=== PATIENT | female | born 1980 | race Caucasian/White ===

== ENCOUNTER 2016-08-26 19:58 | Emergency (ER) | payer OTHER ==
[2016-08-26 20:08] VITALS: BP 121/81
--- NOTE | 2016-08-26 20:12 | EDM.PDOC ---
ED HPI GENERAL MEDICAL PROBLEM - General Chief Complaint: Abdominal Pain Stated Complaint: VOMITING ABDOMINAL PAIN Time Seen by Provider: 08/26/16 20:04 - History of Present Illness INITIAL COMMENTS - FREE TEXT/NARRATIVE: 5-year-old female presents emergency room with abdominal pain. This pain has been going on for couple of days progressively getting worse. Pain seems to be in the mid epigastric area it is associated with nausea and vomiting she's felt bloated at times. She had a gallbladder removed about 4 years ago. She does get intermittent bouts of heartburn. She's not aware of any specific foods make this worse. She denies any constipation or diarrhea patient isn't aware of any other specific triggers eating tends to make it a little worse but she cannot recall what type of foods make it worse. Middle Abdomen Pain Score (Numeric/FACES): 4 - Related Data Allergies Allergy/AdvReac Type Severity Reaction Status Date / Time No Known Allergies Allergy Verified 08/26/16 20:08 Home Meds: Home Meds Lansoprazole [Prevacid] 30 mg PO Q24H #30 tab.rap.dr 08/26/16 [Rx] Ondansetron [Zofran ODT] 4 mg PO Q6H PRN #10 tab.dis 08/26/16 [Rx] Sucralfate [Carafate] 1 gm PO QIDACANDBED #30 tablet 08/26/16 [Rx] Past Medical History Other Gastrointestinal History: nausea. 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 (See Below) Other OB/BYN History: 5 miscarriages Other Dermatologic History: history of skin cancer - Past Surgical History HEENT Surgical History: Reports: Oral Surgery, Tonsillectomy Social & Family History - Tobacco Use Smoking Status *Q: Former Smoker Years of Tobacco use: 10 Used Tobacco, but Quit: Yes Month Tobacco Last Used: quit 5 years ago Second Hand Smoke Exposure: No - Recreational Drug Use Recreational Drug Use: No ED ROS GENERAL - Review of Systems Review Of Systems: See Below Constitutional: Reports: No Symptoms HEENT: Reports: No Symptoms Respiratory: Reports: No Symptoms Cardiovascular: Reports: Dyspnea on Exertion Endocrine: Reports: No Symptoms GI/Abdominal: Reports: Abdominal Pain, Anorexia, Decreased Appetite, Nausea, Vomiting. Denies: Black Stool, Bloody Stool, Difficulty Swallowing : Reports: No Symptoms Musculoskeletal: Reports: No Symptoms, Neck Pain Skin: Reports: No Symptoms Neurological: Reports: No Symptoms, Confusion, Dizziness, Headache, Numbness Psychiatric: Reports: No Symptoms, Agitation, Anxiety, Confusion ED EXAM, GI/ABD - Physical Exam Exam: See Below Exam Limited By: No Limitations General Appearance: Alert, No Apparent Distress Eyes: Bilateral: Normal Appearance Ears: Normal External Exam, Normal Canal, Hearing Grossly Normal, Normal TMs Nose: Normal Inspection, Normal Mucosa, No Blood Respiratory/Chest: No Respiratory Distress, Lungs Clear, Normal Breath Sounds Cardiovascular: Regular Rate, Rhythm, No Edema, No Murmur GI/Abdominal: Normal Bowel Sounds, Soft, Non-Tender Back Exam: Normal Inspection. No: CVA Tenderness (L), CVA Tenderness (R) Extremities: Normal Inspection, No Pedal Edema Course - Vital Signs Last Recorded V/S: Last Vital Signs Temp 36.7 C 08/26/16 20:04 Pulse 97 08/26/16 20:04 Resp 18 08/26/16 20:04 BP 121/81 08/26/16 20:04 Pulse Ox 99 08/26/16 20:04 - Orders/Labs/Meds Orders: Active Orders 24 hr Category Date Time Status Abdomen 2V AP Flat Upright [CR] Stat Exams 08/26/16 20:26 Taken Pantoprazole [ProTONIX] Med 08/27/16 22:34 Once 40 mg PO ONETIME ONE Medication Orders Pantoprazole Sodium (Protonix) 40 mg PO ONETIME ONE Stop: 08/27/16 22:35 Labs: Laboratory Tests 08/26/16 08/26/16 08/26/16 Range/Units 20:27 20:27 20:27 WBC 7.82 (3.98-10.04) K/mm3 RBC 4.46 (3.98-5.22) M/mm3 Hgb 14.2 (11.2-15.7) gm/L Hct 42.2 (34.1-44.9) % MCV 94.6 (79.4-94.8) fl MCH 31.8 (25.6-32.2) pg MCHC 33.6 (32.2-35.5) g/dl RDW Std Deviation 41.6 (36.4-46.3) fL Plt Count 182 (182-369) K/mm3 MPV 9.2 L (9.4-12.3) fl Neutrophils % (Manual) 87 H (40-60) % Band Neutrophils % 0 (0-10) % Lymphocytes % (Manual) 8 L (20-40) % Atypical Lymphs % 2 % Monocytes % (Manual) 3 (2-10) % Eosinophils % (Manual) 0 L (0.7-5.8) % Basophils % (Manual) 0 L (0.1-1.2) Platelet Estimate Adequate Plt Morphology Comment Normal RBC Morph Comment Normal Sodium 141 (136-145) mEq/L Potassium 3.4 L (3.5-5.1) mEq/L Chloride 106 (98-107) mEq/L Carbon Dioxide 25 (21-32) mEq/L Anion Gap 13.4 (5-15) BUN 7 (7-18) mg/dL Creatinine 1.1 H (0.55-1.02) mg/dL Est Cr Clr Drug Dosing 69.00 mL/min Estimated GFR (MDRD) 57 (>60) mL/min BUN/Creatinine Ratio 6.4 L (14-18) Glucose 100 (74-106) mg/dL Calcium 8.3 L (8.5-10.1) mg/dL Total Bilirubin 2.2 H (0.2-1.0) mg/dL AST 12 L (15-37) U/L ALT 16 (14-59) U/L Alkaline Phosphatase 55 (46-116) U/L Total Protein 7.4 (6.4-8.2) g/dl Albumin 3.9 (3.4-5.0) g/dl Globulin 3.5 gm/dL Albumin/Globulin Ratio 1.1 (1-2) Lipase 171 (73-393) U/L HCG, Qual Negative (NEGATIVE) Urine Color (Yellow) Urine Appearance (Clear) Urine pH (5.0-8.0) Ur Specific [place] (1.005-1.030) Urine Protein (Negative) Urine Glucose (UA) (Negative) Urine Ketones (Negative) Urine Occult Blood (Negative) Urine Nitrite (Negative) Urine Bilirubin (Negative) Urine Urobilinogen (0.2-1.0) Ur Leukocyte Esterase (Negative) Urine RBC (0-5) /hpf Urine WBC (0-5) /hpf Ur Epithelial Cells (0-5) /hpf Urine Bacteria (FEW) /hpf Urine Mucus (FEW) /hpf 08/26/16 Range/Units 21:50 WBC (3.98-10.04) K/mm3 RBC (3.98-5.22) M/mm3 Hgb (11.2-15.7) gm/L Hct (34.1-44.9) % MCV (79.4-94.8) fl MCH (25.6-32.2) pg MCHC (32.2-35.5) g/dl RDW Std Deviation (36.4-46.3) fL Plt Count (182-369) K/mm3 MPV (9.4-12.3) fl Neutrophils % (Manual) (40-60) % Band Neutrophils % (0-10) % Lymphocytes % (Manual) (20-40) % Atypical Lymphs % % Monocytes % (Manual) (2-10) % Eosinophils % (Manual) (0.7-5.8) % Basophils % (Manual) (0.1-1.2) Platelet Estimate Plt Morphology Comment RBC Morph Comment Sodium (136-145) mEq/L Potassium (3.5-5.1) mEq/L Chloride (98-107) mEq/L Carbon Dioxide (21-32) mEq/L Anion Gap (5-15) BUN (7-18) mg/dL Creatinine (0.55-1.02) mg/dL Est Cr Clr Drug Dosing mL/min Estimated GFR (MDRD) (>60) mL/min BUN/Creatinine Ratio (14-18) Glucose (74-106) mg/dL Calcium (8.5-10.1) mg/dL Total Bilirubin (0.2-1.0) mg/dL AST (15-37) U/L ALT (14-59) U/L Alkaline Phosphatase (46-116) U/L Total Protein (6.4-8.2) g/dl Albumin (3.4-5.0) g/dl Globulin gm/dL Albumin/Globulin Ratio (1-2) Lipase (73-393) U/L HCG, Qual (NEGATIVE) Urine Color Yellow (Yellow) Urine Appearance Clear (Clear) Urine pH 6.0 (5.0-8.0) Ur Specific [place] 1.025 (1.005-1.030) Urine Protein Negative (Negative) Urine Glucose (UA) Negative (Negative) Urine Ketones Negative (Negative) Urine Occult Blood Trace-lysed H (Negative) Urine Nitrite Negative (Negative) Urine Bilirubin Negative (Negative) Urine Urobilinogen 0.2 (0.2-1.0) Ur Leukocyte Esterase Negative (Negative) Urine RBC 0-5 (0-5) /hpf Urine WBC 0-5 (0-5) /hpf Ur Epithelial Cells 0-5 (0-5) /hpf Urine Bacteria Rare (FEW) /hpf Urine Mucus Moderate H (FEW) /hpf Meds: Medications Generic Name Dose Route Start Last Admin Trade Name Freq PRN Reason Stop Dose Admin Pantoprazole Sodium 40 mg 08/27/16 22:34 Protonix PO 08/27/16 22:35 ONETIME ONE Discontinued Medications Generic Name Dose Route Start Last Admin Trade Name Freq PRN Reason Stop Dose Admin Al Hydroxide/Mg Hydroxide 30 0 ml 08/26/16 20:23 08/26/16 20:38 ml/ Lidocaine HCl 15 ml PO 08/26/16 20:24 45 ml ONETIME ONE Administration Lactated Ringer's 1,000 mls @ 999 mls/hr 08/26/16 20:23 08/26/16 20:33 Ringers, Lactated IV 08/26/16 21:23 999 mls/hr .BOLUS ONE Administration Ondansetron HCl 4 mg 08/26/16 20:23 08/26/16 20:33 Zofran IVPUSH 08/26/16 20:24 4 mg ONETIME ONE Administration Sucralfate 1 gm 08/26/16 22:24 08/26/16 22:28 Carafate PO 08/26/16 22:25 1 gm ONETIME ONE Administration - Re-Assessments/Exams Free Text/Narrative Re-Assessment/Exam: 08/26/16 22:26 Patient had significant improvement with the GI cocktail patient will be given Carafate and a dose of Protonix prior to leaving. KUB and upright are unrevealing laboratory evaluation is unrevealing. Departure - Departure Time of Disposition: 22:26 Disposition: Home, Self-Care 01 Clinical Impression: Dyspepsia - Discharge Information Prescriptions: Lansoprazole [Prevacid] 30 mg PO Q24H #30 tab.rap Ondansetron [Zofran ODT] 4 mg PO Q6H PRN #10 tab.dis PRN Reason: Nausea/Vomiting Sucralfate [Carafate] 1 gm PO QIDACANDBED #30 tablet Referrals: Tk Rubin MD [Primary Care Provider] - Forms: ED Department Discharge Additional Instructions: Return to the emergency room with any questions or problems or worsening symptoms. Follow up with her physician early this next week for recheck. He been started on several medications first one is Carafate take this 4 times a day before meals and at bedtime take your other medications at least 1 hour before 2 hours after using this medication. You only take this medication for a week. The second medication is Prevacid take this 30-60 minutes before your evening meal. The third medicine is Zofran this is for nausea use this on an as- needed basis one every 6 hours. - My Orders Last 24 Hours: My Active Orders 08/26/16 20:26 Abdomen 2V AP Flat Upright [CR] Stat 08/27/16 22:34 Pantoprazole [ProTONIX] 40 mg PO ONETIME ONE - Assessment/Plan Last 24 Hours: My Active Orders 08/26/16 20:26 Abdomen 2V AP Flat Upright [CR] Stat 08/27/16 22:34 Pantoprazole [ProTONIX] 40 mg PO ONETIME ONE
[2016-08-26] MEDS ORDERED: Lactated Ringers 1,000 ML IV ONE (20:23)
[2016-08-26] MEDS ORDERED: Alum Hydrox/Mag Hydrox/Simeth 30 ML, Lidocaine 2% 15 ML PO ONE ×2 (20:23)
[2016-08-26] MEDS ORDERED: Ondansetron 4 MG/2 ML SDV IVPUSH ONE (20:23)
[2016-08-26] MEDS ORDERED: Sucralfate Suspension 1 GM/10 ML Cup PO ONE (22:24)
[2016-08-26] MEDS ORDERED: Pantoprazole 40 MG Tab.CR PO ONE (22:34)
--- NOTE | 2016-08-27 07:01 | CR ---
Abdomen: Supine and upright views of the abdomen were obtained. Comparison: Previous abdominal x-ray of 04/22/09. Several small calcifications are seen within the pelvis most likely representing phleboliths. Surgical clips are seen from prior cholecystectomy. Bowel gas pattern appears normal. Bony structures are within normal limits. No free air is seen. Impression: 1. Incidental findings as described above. Diagnostic code #2
[2016-08-27] MEDS ORDERED: Pantoprazole 40 MG Tab.CR PO ONE (22:34)
== END 2016-08-26 22:50 | disposition home or self-care (01) ==
LOC: JD.ED 19:58
DX: R10.13 Epigastric pain (principal); Z98.890 Other specified postprocedural states; Z85.828 Personal history of other malignant neoplasm of skin; Z87.891 Personal history of nicotine dependence
CPT/HCPCS: 36415; 74020; 80053; 81001; 83690; 84703; 85025; 96361; 96374; 99284; A9270; J2405; J7120; 99283

== ENCOUNTER 2019-12-22 16:08 | Emergency (ER) | payer OTHER ==
[2019-12-22 16:19] VITALS: BP 106/65; PULSE 74
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
[2019-12-22] MEDS ORDERED: Oxymetazoline 0.05% Nasal Spray 30 ML Bottle NAS ONE (16:51)
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
== END 2019-12-22 17:19 | disposition home or self-care (01) ==
LOC: JD.ED 16:08
DX: S00.33XA Contusion of nose, initial encounter (principal); F41.9 Anxiety disorder, unspecified; Z90.710 Acquired absence of both cervix and uterus; Z90.49 Acquired absence of other specified parts of digestive tract; Z79.899 Other long term (current) drug therapy; W22.8XXA Striking against or struck by other objects, initial encounter; Y92.009 Unspecified place in unspecified non-institutional (private) residence as the place of occurrence of the external cause
CPT/HCPCS: 70160; 99283; A9270

== ENCOUNTER 2020-03-29 19:08 | Emergency (ER) | payer OTHER ==
--- NOTE | 2020-03-29 20:12 | EDM.PDOC ---
ED HPI GENERAL MEDICAL PROBLEM - General Chief Complaint: Skin Complaint Stated Complaint: PAIN REDNESS AND SWELLING IN LEGS Time Seen by Provider: 03/29/20 19:09 Source of Information: Reports: Patient History Limitations: Reports: No Limitations - History of Present Illness INITIAL COMMENTS - FREE TEXT/NARRATIVE: Is a 39-year-old female. She says that yesterday she felt kind of tired and yucky and she was having some chills but no documented fever. She noted this morning that she started having pain on the left lateral foot area with redness and swelling that has progressed. She also developed redness on the right lateral malleolus and it seems to go streaking up about mcfp up the lateral leg. Then she has 2 spots on the left medial calf noted. This is gotten worse and more painful and she comes to the clinic for evaluation. She says that her ankles also hurt if she tries to move them or walk. She denies any insect bites. She denies any abrasions. She did shave her legs this afternoon in anticipation of coming to the ER this evening. Nausea vomiting diarrhea denies any cough or congestion. Bilateral Lower Leg Pain Score (Numeric/FACES): 8 - Related Data Allergies Allergy/AdvReac Type Severity Reaction Status Date / Time No Known Allergies Allergy Verified 03/29/20 19:20 Home Meds: Home Meds LORazepam [Ativan] 1 mg PO ASDIRECTED PRN 09/14/18 [History] Multivitamin [Daily Multiple Vitamin] 1 tab PO DAILY 09/14/18 [History] Sertraline HCl [Zoloft] 20 mg PO DAILY 12/22/19 [History] cephALEXin [Keflex] 500 mg PO TID #21 cap 03/29/20 [Rx] Past Medical History HEENT History: Reports: Other (See Below) Other HEENT History: wears glasses Cardiovascular History: Reports: None Respiratory History: Reports: None Gastrointestinal History: Reports: Cholelithiasis, PUD Other Gastrointestinal History: nausea. 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, ovarian cyst, irregular menstrual bleeding, dysmenorrhea, dyspareunia, pelvic pain, left breast mass, Musculoskeletal History: Reports: Other (See Below) Other Musculoskeletal History: broken thumb Neurological History: Reports: Migraines Psychiatric History: Reports: Anxiety Endocrine/Metabolic History: Reports: None Hematologic History: Reports: Anemia Immunologic History: Reports: None Oncologic (Cancer) History: Reports: None Dermatologic History: Reports: Other (See Below) Other Dermatologic History: history of skin cancer, six spots removed - Past Surgical History Head Surgeries/Procedures: Reports: None HEENT Surgical History: Reports: Oral Surgery, Tonsillectomy Other HEENT Surgeries/Procedures: wisdom teeth extraction Cardiovascular Surgical History: Reports: None Respiratory Surgical History: Reports: None GI Surgical History: Reports: Cholecystectomy Female Surgical History: Reports: Hysterectomy Endocrine Surgical History: Reports: None Neurological Surgical History: Reports: None Oncologic Surgical History: Reports: None Social & Family History - Tobacco Use Tobacco Use Status *Q: Never Tobacco User Second Hand Smoke Exposure: No - Caffeine Use Caffeine Use: Reports: Coffee - Recreational Drug Use Recreational Drug Use: No ED ROS GENERAL - Review of Systems Review Of Systems: See Below Constitutional: Reports: Chills, Malaise. Denies: Fever HEENT: Reports: No Symptoms Respiratory: Reports: No Symptoms Cardiovascular: Reports: No Symptoms Endocrine: Reports: No Symptoms GI/Abdominal: Reports: No Symptoms : Reports: No Symptoms Musculoskeletal: Reports: No Symptoms Skin: Reports: Erythema Neurological: Reports: No Symptoms Psychiatric: Reports: No Symptoms Hematologic/Lymphatic: Reports: No Symptoms ED EXAM, SKIN/RASH Exam: See Below Exam Limited By: No Limitations General Appearance: Alert, WD/WN, No Apparent Distress Eye Exam: Bilateral Eye: Normal Inspection Ears: Normal External Exam Nose: Normal Inspection Throat/Mouth: Normal Lips, Normal Voice, No Airway Compromise Head: Normocephalic Neck: Supple Respiratory/Chest: No Respiratory Distress Back Exam: Full Range of Motion Extremities: Normal Range of Motion, Other (The left lower extremity she has a area about the size of my palm on her lateral foot and lateral malleolus area that swollen and red and very tender. On the right lower extremity she has the same redness on the lateral foot but then she has streaking of the redness about mcfp up the lateral side and then 2 spots about the size of a quarter on the medial calf. It is very tender on palpation. When she moves her ankles she complains of pain in these areas as well. It does not look like a gout picture where she has global swelling around the ankle joint.) Neurological: Alert, Oriented Psychiatric: Normal Affect, Normal Mood Skin: Warm, Dry, Erythema Location, Skin: Lower Extremity, Right, Lower Extremity, Left Associated features: Warmth, Tenderness, Swelling Course - Vital Signs Last Recorded V/S: Last Vital Signs Temp 98.5 F 03/29/20 19:17 Pulse 84 03/29/20 19:17 Resp 16 03/29/20 19:17 BP 112/70 03/29/20 19:17 Pulse Ox 98 03/29/20 19:17 - Orders/Labs/Meds Orders: Active Orders 24 hr Category Date Time Status cefTRIAXone 1 GM with Lidocaine 1% 2.1 ML IM Med 03/29/20 20:45 Ordered cefTRIAXone [Rocephin] 1 gm Lidocaine 1% [Xylocaine 1%] 2.1 ml IM Q24H Labs: Laboratory Tests 03/29/20 03/29/20 Range/Units 20:05 20:05 WBC 6.87 (3.98-10.04) K/mm3 RBC 4.08 (3.98-5.22) M/mm3 Hgb 13.0 D (11.2-15.7) gm/dl Hct 39.7 (34.1-44.9) % MCV 97.3 H (79.4-94.8) fl MCH 31.9 (25.6-32.2) pg MCHC 32.7 (32.2-35.5) g/dl RDW Std Deviation 41.3 (36.4-46.3) fL Plt Count 200 (182-369) K/mm3 MPV 8.4 L (9.4-12.3) fl Neut % (Auto) 58.1 (34.0-71.1) % Lymph % (Auto) 27.2 (19.3-51.7) % [place] % (Auto) 10.9 (4.7-12.5) % Eos % (Auto) 3.1 (0.7-5.8) Baso % (Auto) 0.4 (0.1-1.2) % Neut # (Auto) 3.99 (1.56-6.13) K/mm3 Lymph # (Auto) 1.87 (1.18-3.74) K/mm3 [place] # (Auto) 0.75 H (0.24-0.36) K/mm3 Eos # (Auto) 0.21 (0.04-0.36) K/mm3 Baso # (Auto) 0.03 (0.01-0.08) K/mm3 Uric Acid 3.9 (2.6-6.0) mg/dL C-Reactive Protein < 0.2 (<1.0) mg/dL - Re-Assessments/Exams Free Text/Narrative Re-Assessment/Exam: 03/29/20 20:43 Look to the patient regarding her cellulitis. We will going to give her a shot of Rocephin here in the ER to start things off. I did indicate to her that I believe that the reason it spreading is because she shaved her legs over the infection and she seated the skin above it. I will keep her on Keflex for at least 7 days. I indicated that if she does not notice a difference or improvement in 48 hours she needs to be rechecked by another physician. She states that she understands. I also cautioned her about keeping the legs elevated and using moist heat and taking some ibuprofen or Aleve for the soreness and try to stay off her legs until they start getting better. 03/29/20 20:44 CBC showed a normal white count her uric acid was normal and her C-reactive protein was normal Departure - Departure Time of Disposition: 20:44 Disposition: Home, Self-Care 01 Condition: Good Clinical Impression: Cellulitis of right lower extremity, Cellulitis of left lower extremity - Discharge Information *PRESCRIPTION DRUG MONITORING PROGRAM REVIEWED*: Not Applicable *COPY OF PRESCRIPTION DRUG MONITORING REPORT IN PATIENT PRITI: Not Applicable Prescriptions: cephALEXin [Keflex] 500 mg PO TID #21 cap Instructions: Cellulitis, Adult, [id number] Referrals: Tk Rubin MD [Primary Care Provider] - Forms: ED Department Discharge Additional Instructions: The shot that I gave you for the cellulitis will last for 24 hours but get your prescription filled tomorrow and start taking the antibiotics Tuesday evening, try to keep your legs elevated is much as possible use moist heat to the areas and take some ibuprofen or Aleve to help with the soreness. Try to stay off your feet as much as possible for the next couple of days. If you do not see a improvement or there is an obvious worsening of the symptoms or swelling or redness you need to follow-up in 48 hours for reevaluation with your family doctor or return to the ER. Sepsis Event Note (ED) - Evaluation Sepsis Screening Result: No Definite Risk - Focused Exam Vital Signs: Vital Signs Temp Pulse Resp BP Pulse Ox 03/29/20 19:17 98.5 F 84 16 112/70 98 - My Orders Last 24 Hours: My Active Orders 03/29/20 20:45 cefTRIAXone 1 GM with Lidocaine 1% 2.1 ML IM cefTRIAXone [Rocephin] 1 gm Lidocaine 1% [Xylocaine 1%] 2.1 ml IM Q24H - Assessment/Plan Last 24 Hours: My Active Orders 03/29/20 20:45 cefTRIAXone 1 GM with Lidocaine 1% 2.1 ML IM cefTRIAXone [Rocephin] 1 gm Lidocaine 1% [Xylocaine 1%] 2.1 ml IM Q24H
[2020-03-29] MEDS ORDERED: cefTRIAXone 1 GM, Lidocaine 1% 2.1 ML IM SCH ×2 (20:45)
[2020-03-29 20:53] VITALS: BP 95/61; PULSE 76
== END 2020-03-29 21:07 | disposition home or self-care (01) ==
LOC: JD.ED 19:08
DX: L03.115 Cellulitis of right lower limb (principal); L03.116 Cellulitis of left lower limb; R68.83 Chills (without fever); R53.81 Other malaise
CPT/HCPCS: 36415; 84550; 85025; 86140; 96372; 99283; J0696

== ENCOUNTER 2022-07-13 21:51 | Emergency (ER) | payer BC, OTHER ==
[2022-07-13] MEDS ORDERED: Sodium Chloride 0.9% 10 ML Syringe FLUSH PRN (22:39)
[2022-07-13] MEDS ORDERED: Ondansetron 4 MG/2 ML SDV IVPUSH ONE (22:39)
[2022-07-13] MEDS ORDERED: Sodium Chloride 0.9% 1,000 ML IV SCH (22:45)
[2022-07-13 22:50] LABS: BASOPHILS ABSOLUTE AUTO 0.06 K/mm3 (0.01-0.08); BASOPHILS PERCENT AUTO 0.7 % (0.1-1.2); EOSINOPHILS ABSOLUTE AUTO 0.41 K/mm3 (0.04-0.36); HEMOGLOBIN 13.5 gm/dl (11.2-15.7); IMMATURE GRAN ABSOLUTE AUTO 0.02 K/mm3 (0.00-0.10); IMMATURE GRAN PERCENT AUTO 0.2 % (<=1.0); LYMPHOCYTES ABSOLUTE AUTO 3.04 K/mm3 (1.18-3.74); LYMPHOCYTES PERCENT AUTO 36.9 % (19.3-51.7); MEAN CORPUSCULAR HEMOGLOBIN 32.1 pg (25.6-32.2); MEAN CORPUSCULAR HGB CONC 32.9 g/dl (32.2-35.5); MEAN CORPUSCULAR VOLUME 97.4 fl (79.4-94.8); MONOCYTES ABSOLUTE AUTO 0.56 K/mm3 (0.24-0.36); MONOCYTES PERCENT AUTO 6.8 % (4.7-12.5); NEUTROPHILS ABSOLUTE AUTO 4.14 K/mm3 (1.56-6.13); NEUTROPHILS PERCENT AUTO 50.4 % (34.0-71.1); PLATELET COUNT,PLT 269 K/mm3 (182-369); RED BLOOD CELL COUNT 4.21 M/mm3 (3.98-5.22); WHITE BLOOD CELL COUNT,WBC 8.23 K/mm3 (3.98-10.04)
[2022-07-13 23:01] LABS: APPEARANCE,URINE CLEAR (Clear); BILIRUBIN,URINE NEGATIVE (Negative); COLOR,URINE YELLOW (Yellow); GLUCOSE,URINE NEGATIVE (Negative); KETONES,URINE NEGATIVE (Negative); LEUKOCYTE ESTERASE,URINE NEGATIVE (Negative); NITRITE,URINE NEGATIVE (Negative); OCCULT BLOOD,URINE TRACE-INTACT (Negative); PROTEIN,URINE NEGATIVE (Negative); UROBILINOGEN,URINE 0.2 (0.2-1.0)
[2022-07-13 23:14] LABS: A/G RATIO 1.2 (1-2); ALANINE AMINOTRANSFERASE,ALT 28 U/L (14-59); ALBUMIN 3.9 g/dl (3.4-5.0); ALKALINE PHOSPHATASE 64 U/L (46-116); ANION GAP 12.4 (5-15); ASPARTATE AMNIOTRANSFERASE,AST 20 U/L (15-37); BLOOD UREA NITROGEN,BUN 15 mg/dL (7-18); BUN/CREATININE RATIO 16.7 (14-18); C-REACTIVE PROTEIN <0.2 mg/dL (<1.0); CALCIUM 8.7 mg/dL (8.5-10.1); CARBON DIOXIDE,CO2 26 mEq/L (21-32); CHLORIDE,CL 104 mEq/L (98-107); CREATININE 0.9 mg/dL (0.55-1.02); EST CRCL DRUG DOSING (CG) 82.98 mL/min; ESTIMATED GFR 82 mL/min (>60); GLUCOSE RANDOM 94 mg/dL (70-99); LIPASE 116 U/L (73-393); MAGNESIUM 1.8 mg/dL (1.8-2.4); POTASSIUM,K 3.4 mEq/L (3.5-5.1); PROTEIN TOTAL,TP 7.2 g/dl (6.4-8.2); SODIUM,NA 139 mEq/L (136-145)
[2022-07-13] MEDS ORDERED: HYDROmorphone 0.5 MG/0.5 ML Syringe IVPUSH ONE (23:16)
[2022-07-13 23:17] LABS: BACTERIA,URINE RARE /hpf (FEW); EPITHELIAL CELLS,URINE 0-5 /hpf (0-5); MUCUS,URINE NOT SEEN /hpf (FEW); RBC,URINE 0-5 /hpf (0-5); WBC,URINE 0-5 /hpf (0-5)
[2022-07-13 23:21] LABS: HCG QUANTITATIVE < 1.0 mIU/mL
[2022-07-13] MEDS ORDERED: Sodium Chloride 0.9% 10 ML Syringe FLUSH ONE (23:30)
[2022-07-13] MEDS ORDERED: Iopamidol 612 MG/ML 100 ML Bottle IVPUSH ONE (23:30)
[2022-07-14 01:03] VITALS: BP 104/61; PULSE 66
== END 2022-07-14 00:57 | disposition home or self-care (01) ==
LOC: JD.ED 21:51
DX: R10.31 Right lower quadrant pain (principal); Z87.891 Personal history of nicotine dependence; Z90.49 Acquired absence of other specified parts of digestive tract; Z90.710 Acquired absence of both cervix and uterus; Z90.722 Acquired absence of ovaries, bilateral
CPT/HCPCS: 36415; 74177; 80053; 81001; 83690; 83735; 84702; 85025; 86140; 96361; 96374; 96375; 99284; J1170; J2405; J3490; J7030; Q9967

== ENCOUNTER 2024-02-18 08:52 | Emergency (ER) | payer BC ==
[2024-02-18] MEDS ORDERED: Sodium Chloride 0.9% 100 ML IV SCH (09:30)
[2024-02-18] MEDS: Ketorolac 30 MG/ML SDV IVPUSH ONE (09:30)
[2024-02-18] MEDS: Metoclopramide 10 MG/2 ML SDV IVPUSH ONE (09:32)
[2024-02-18] MEDS: diphenhydrAMINE 50 MG/ML SDV IVPUSH ONE (09:34)
[2024-02-18] MEDS: Sodium Chloride 0.9% 10 ML Syringe FLUSH PRN (09:34)
[2024-02-18 09:38] LABS: BASOPHILS ABSOLUTE AUTO 0.1 K/mm3 (0.0-0.2); BASOPHILS PERCENT AUTO 0.7 % (0.0-1.0); EOSINOPHILS ABSOLUTE AUTO 0.1 K/mm3 (0.0-0.4); EOSINOPHILS PERCENT AUTO 1.6 % (0.0-6.0); HEMATOCRIT 43.5 % (37.0-47.0); HEMOGLOBIN 14.3 gm/dl (12.0-16.0); IMMATURE GRAN ABSOLUTE AUTO 0.03 K/mm3 (0.00-0.05); IMMATURE GRAN PERCENT AUTO 0.4 % (0.0-0.4); LYMPHOCYTES ABSOLUTE AUTO 1.5 K/mm3 (1.0-4.8); LYMPHOCYTES PERCENT AUTO 22.5 % (24.0-44.0); MEAN CORPUSCULAR HEMOGLOBIN 32.2 pg (28.0-32.0); MEAN CORPUSCULAR HGB CONC 32.9 g/dl (32.0-36.0); MEAN PLATELET VOLUME 8.8 fl (9.4-12.3); MONOCYTES ABSOLUTE AUTO 0.6 K/mm3 (0.0-0.8); MONOCYTES PERCENT AUTO 8.4 % (0.0-8.0); NEUTROPHILS ABSOLUTE AUTO 4.5 K/mm3 (1.8-7.7); NEUTROPHILS PERCENT AUTO 66.4 % (41.0-71.0); PLATELET COUNT,PLT 236 K/mm3 (150-400); RED BLOOD CELL COUNT 4.44 M/mm3 (4.10-5.30); WHITE BLOOD CELL COUNT,WBC 6.79 K/mm3 (3.9-11.3)
[2024-02-18] MEDS: Iopamidol 755 Mg/ML 100 ML Bottle IVPUSH ONE (09:48)
[2024-02-18] MEDS: Sodium Chloride 0.9% 1,000 ML IV ONE (09:55)
[2024-02-18 10:03] LABS: INR 0.95; PROTHROMBIN TIME 10.1 SECONDS (9.7-12.0)
[2024-02-18 10:04] LABS: PTT,PARTIAL THROMBOPLSTIN TIME 27.4 SECONDS (21.7-31.4)
[2024-02-18 10:08] LABS: A/G RATIO 1.1 (1-2); ALANINE AMINOTRANSFERASE,ALT 37 U/L (14-59); ALBUMIN 3.8 g/dl (3.4-5.0); ALKALINE PHOSPHATASE 63 U/L (46-116); ANION GAP 16.7 (5-15); ASPARTATE AMNIOTRANSFERASE,AST 18 U/L (15-37); BILIRUBIN TOTAL 1.8 mg/dL (0.2-1.0); BLOOD UREA NITROGEN,BUN 9 mg/dL (7-18); BUN/CREATININE RATIO 12.9 (14-18); CALCIUM 8.8 mg/dL (8.5-10.1); CARBON DIOXIDE,CO2 25 mEq/L (21-32); CHLORIDE,CL 102 mEq/L (98-107); CREATININE 0.7 mg/dL (0.55-1.02); EST CRCL DRUG DOSING (CG) 104.53 mL/min; ESTIMATED GFR 110 mL/min (>60); GLUCOSE RANDOM 88 mg/dL (70-99); POTASSIUM,K 3.7 mEq/L (3.5-5.1); PROTEIN TOTAL,TP 7.2 g/dl (6.4-8.2); SODIUM,NA 140 mEq/L (136-145); TROPONIN I HIGH SENSITIVITY < 4 pg/mL (<=51)
[2024-02-18] MEDS: Meclizine 25 MG Tab PO ONE (11:58)
[2024-02-18] MEDS: Aspirin 81 MG Tab.Chew PO ONE (12:57)
[2024-02-18 17:21] VITALS: BP 98/64; PULSE 80
[2024-02-18] MEDS: LORazepam 2 MG/ML SDV IVPUSH ONE (17:30)
== END 2024-02-18 17:33 ==
LOC: JD.ED 08:52
DX: I72.0 Aneurysm of carotid artery (principal); R42 Dizziness and giddiness; Z90.49 Acquired absence of other specified parts of digestive tract; Z90.710 Acquired absence of both cervix and uterus; Z79.899 Other long term (current) drug therapy
CPT/HCPCS: 36415; 70450; 70496; 70498; 80053; 84484; 85025; 85610; 85730; 93005; 96361; 96374; 96375; 99285; A9270; J1200; J1885; J2060; J2765; J7030; Q9967